=== PATIENT | female | born 1985 | race Two or more races ===

== ENCOUNTER 2018-12-02 09:01 | Observation (INO) | payer MEDICAID ==
[~2018-12-02] VITALS: Ht 160 cm; Wt 97.1 kg
== END 2018-12-02 11:35 | disposition home or self-care (01) ==
LOC: 8 EST LDRP 09:01
PROVIDERS: ADMIT Specialist; ATTEND Specialist
DX: O36.0990 Maternal care for other rhesus isoimmunization, unspecified trimester, not applicable or unspecified (principal); Z3A.00 Weeks of gestation of pregnancy not specified
CPT/HCPCS: 36415; 86850; 86900; 86901; 90384; 99281; G0378; 96372